=== PATIENT | female | born 1945 ===

== ENCOUNTER 2017-09-18 18:59 | Emergency (ER) | payer MEDICARE, BC ==
[2017-06-01 09:41] VITALS: Ht 162.6 cm; Wt 77.6 kg
[~2017-09-18] VITALS: Ht 162.6 cm; Wt 77.6 kg
[~2017-09-18 18:59] MED LIST: ASCO-182 PO; ASPI-1471 PO; ASPI-757 PO; ATOR40TA24 PO; CALC1TAB32 PO; CALC600T63 PO; CHOL200059 PO; CYCL10TA29 PO; ESCI20TA8 PO; HYDR-385 PO; HYDR-4225 PO; IRO150 PO; LEVO50TA86 PO; MELO-205 PO; METH4TAB67 PO; OMEP40CA48 PO; OXYC-865 PO; ZOLP-350 PO
--- NOTE | 2017-09-18 19:01 | ER Report ---
History and Physical Time Seen By MD: 19:00 HPI/ROS CHIEF COMPLAINT: Right shoulder pain, insomnia HISTORY OF PRESENT ILLNESS: 72-year-old female with a history of advanced arthritis presents with severe right shoulder pain with causing her not to be able to sleep the last 2 days. She is status post total knee replacement on the left by Dr. Rodriguez in late May of last year. She states she seen Dr. Rodriguez. They were considering shoulder replacement surgery. Patient is supposed to show up tomorrow at 3 PM for preop for anticipated surgery on Tuesday09/20/17. She's been taking some leftover hydrocodone left over from dental surgery in an attempt to get some pain relief. She notes no fever or chills. On arrival. She's grossly pale and diaphoretic. During her most recent admission. She was noted to have iron deficiency anemia. There was plans suggested that she needed endoscopy and colonoscopy to rule out occult sources of blood loss. Patient recovered successfully from her total knee replacement. She denies recent illness, fever, chills, sore throat, cough or dysuria. She denies chest pain or shortness of breath. She was placed on Bactrim DS twice a day for 3 days by her primary care doctor in [facility] For urinary tract infection. She is taking the last day of this regime. REVIEW OF SYSTEMS: Respiratory: No cough, no dyspnea. Cardiovascular: No chest pain, no palpitations. Gastrointestinal: No vomiting, no abdominal pain. Musculoskeletal: As above Allergies: Coded Allergies: No Known Drug Allergies (Unverified , 09/18/17) Home Meds Active Scripts Hydrocodone Bit/Acetaminophen (NORCO 5-325 TABLET) 1 Each Tablet, 1 EACH PO Q4H Y for PAIN, #15 TAB Prov:BRANT BUTLER DO 09/18/17 Ondansetron (ZOFRAN ODT) 4 Mg Tab.rapdis, 4 MG PO every 6 hours Y for NAUSEA/ VOMITING, #10 TAB TAKE 1 TABLET BY MOUTH EVERY 12 HOURS Prov:BRANT BUTLER DO 09/18/17 Aspirin (ASPIRIN) 325 Mg Tablet, 325 MG PO QHS for 30 Days, Take for 30 days for blood clot prevention, then resume aspirin 81mg a day. Prov:JENNIFER WARD MD 06/02/17 Reported Medications Sulfamethoxazole/Trimet 800-160 Mg Tab (BACTRIM DS TABLET) 1 Each Tablet, 1 TAB PO Q12H, TAB 09/18/17 Meloxicam (MELOXICAM) 7.5 Mg Tablet, 7.5 MG PO QDAY 09/12/17 Calcium Carb & Cit/Vitamin D3 (CALCIUM + D3 ER TABLET) 1 Each Tablet.er, 1 EACH PO QDAY 09/12/17 Calcium Carbonate (CALCIUM) 600 Mg Tablet, 600 MG PO 09/12/17 Hydrocodone Bit/Acetaminophen (HYDROCODON-ACETAMINOPHEN 5-325) 1 Each Tablet, 1- 2 EACH PO Q4H for PAIN, TAB 06/02/17 Zolpidem Tartrate (AMBIEN) 10 Mg Tablet, 1 TAB PO QHS Y for INSOMNIA, TAB 05/18/17 Levothyroxine Sodium (LEVOTHYROXINE SODIUM) 50 Mcg Tablet, 50 MCG PO QDAY, TAB 05/18/17 Escitalopram Oxalate (ESCITALOPRAM OXALATE) 20 Mg Tablet, 20 MG PO QDAY 05/18/17 Hydroxyzine Hcl (HYDROXYZINE HCL) 25 Mg Tablet, 25 MG PO QDAY Y for ANXIETY, 05/18/17 Ascorbic Acid (VITAMIN C) 500 Mg Tablet, 50 MG PO QDAY, TAB 05/18/17 Cholecalciferol (Vitamin D3) (Vitamin D) 2,000 Unit Tablet, 1000 PO QDAY 05/18/17 Omeprazole (OMEPRAZOLE) 40 Mg Capsule.dr, 40 MG PO QDAY, CAP 05/18/17 Discontinued Reported Medications Atorvastatin Calcium (LIPITOR) 40 Mg Tablet, 1 TAB PO QDAY, TAB 05/18/17 Oxycodone Hcl/Acetaminophen (PERCOCET 5-325 MG TABLET) 1 Each Tablet, 1-2 EACH PO Q4-6H Y for PAIN, TAB 06/02/17 Discontinued Scripts Polysaccharide Iron Complex (POLY-IRON) 150 Mg Cap, 150 MG PO BIDBS, #60 CAP Prov:JENNIFER WARD MD 06/02/17 Reviewed Nurses Notes: Yes Old Medical Records Reviewed: Yes Hx Smoking: No Smoking Status: Never Smoker Hx Alcohol Use: Yes Constitutional Vital Sign - Last 24 Hours 09/18/17 09/18/17 09/18/17 09/18/17 19:04 19:10 19:15 19:30 Temp 98.2 Pulse 82 85 84 Resp 14 B/P (MAP) 138/76 (96) 138/76 Pulse Ox 100 100 96 O2 Delivery Room Air 09/18/17 09/18/17 09/18/17 09/18/17 19:45 20:00 20:15 20:30 Pulse 81 80 87 81 B/P (MAP) 136/72 (93) Pulse Ox 93 91 96 92 09/18/17 09/18/17 09/18/17 09/18/17 20:45 21:15 21:38 21:41 Pulse 80 87 78 Resp 7 14 B/P (MAP) 132/68 (89) 138/70 (92) 131/69 (89) Pulse Ox 89 91 91 O2 Delivery Room Air O2 Flow Rate 2.0 09/18/17 09/18/17 09/18/17 09/18/17 21:45 22:00 22:15 22:45 Pulse 77 77 81 87 Resp 8 7 10 14 B/P (MAP) 108/62 (77) 113/87 (96) Pulse Ox 99 98 100 93 O2 Delivery Room Air Physical Exam Vital signs stable, afebrile, pulse ox normal General Appearance: The patient is alert, has no immediate need for airway protection and no current signs of toxicity., Grossly pale appearing, slightly diaphoretic. HEENT: Pupils equal and round no injection. Oropharynx without redness or exudate Respiratory: Chest is non tender, lungs are clear to auscultation. Cardiac: regular rate and rhythm, no murmur Gastrointestinal: Abdomen is soft and non tender, no masses, bowel sounds normal. Musculoskeletal: Neck: Neck is supple and non tender. No lymphadenopathy, no JVD Extremities have full range of motion and are non tender. No edema, no calf tenderness Skin: No rashes or lesions. DIFFERENTIAL DIAGNOSIS: After history and physical exam differential diagnosis was considered for weakness including but not limited to electrolyte abnormality , depression, anxiety, CVA, spinal cord abnormality, and infectious causes. Medical Decision Making Data Points Result Diagram: 09/18/17191809/18/171918 Laboratory Hematology Test 09/18/17 19:19 09/18/17 21:25 Red Blood Count 4.58 M/uL (4.17-5.56) Mean Corpuscular Volume 70.2 fL (80.0-96.0) Mean Corpuscular Hemoglobin 22.2 pg (26.0-33.0) Mean Corpuscular Hemoglobin Concent 31.6 g/dL (32.0-36.0) Red Cell Distribution Width 19.6 % (11.5-14.5) Mean Platelet Volume 6.6 fL (7.2-11.1) Neutrophils (%) (Auto) 61.2 % (39.4-72.5) Lymphocytes (%) (Auto) 21.2 % (17.6-49.6) Monocytes (%) (Auto) 9.3 % (4.1-12.4) Eosinophils (%) (Auto) 7.5 % (0.4-6.7) Basophils (%) (Auto) 0.8 % (0.3-1.4) Nucleated RBC Relative Count (auto) 0.0 /100WBC Neutrophils # (Auto) 3.1 K/uL (2.0-7.4) Lymphocytes # (Auto) 1.1 K/uL (1.3-3.6) Monocytes # (Auto) 0.5 K/uL (0.3-1.0) Eosinophils # (Auto) 0.4 K/uL (0.0-0.5) Basophils # (Auto) 0.0 K/uL (0.0-0.1) Nucleated RBC Absolute Count (auto) 0.00 K/uL Prothrombin Time 12.7 seconds (12.0-14.4) Prothromb Time International Ratio 0.95 Activated Partial Thromboplast Time 27 seconds (23-35) D-Dimer Quantitative (PE/DVT) 1.98 ug/ml (0-0.50) Sodium Level 138 mmol/L (137-145) Potassium Level 3.7 mmol/L (3.5-5.0) Chloride Level 102 mmol/L (98-107) Carbon Dioxide Level 20 mmol/L (22-31) Blood Urea Nitrogen 19 mg/dl (7-18) Creatinine 1.30 mg/dl (0.52-1.04) Glomerular Filtration Rate Calc 40.5 Random Glucose 134 mg/dl (75-110) Calcium Level 9.2 mg/dl (8.4-10.2) Total Bilirubin 0.2 mg/dl (0.2-1.3) Aspartate Amino Transf (AST/SGOT) 24 U/L (0-35) Alanine Aminotransferase (ALT/SGPT) 38 U/L (0-56) Alkaline Phosphatase 155 U/L (0-126) Troponin I < 0.012 ng/ml B-Type Natriuretic Peptide 12 pg/ml (0-100) Total Protein 7.4 gm/dl (6.3-8.2) Albumin 4.2 g/dl (3.5-5.0) Urine Color Yellow Urine Clarity Clear Urine pH 7.0 pH (4.8-9.5) Urine Specific [place] 1.018 Urine Protein Negative mg/dL (NEGATIVE) Urine Glucose (UA) Negative mg/dL (NEGATIVE) Urine Ketones Trace mg/dL (NEGATIVE) Urine Blood Negative (NEGATIVE) Urine Nitrite Negative (NEGATIVE) Urine Bilirubin Negative (NEGATIVE) Urine Urobilinogen Negative mg/dL (0.2-1.9) Urine Leukocyte Esterase Negative (NEGATIVE) Urine RBC <1 /HPF (0-2/HPF) Urine WBC <1 /HPF (0-5/HPF) Urine Squamous Epithelial Cells Many /LPF (</=FEW) Urine Bacteria Negative /HPF (NONE-FEW) Urine Mucus None /HPF (NONE-FEW) Chemistry Test 09/18/17 19:19 09/18/17 21:25 White Blood Count 5.1 k/uL (4.5-11.0) Red Blood Count 4.58 M/uL (4.17-5.56) Hemoglobin 10.2 g/dL (12.0-16.0) Hematocrit 32.2 % (34.0-47.0) Mean Corpuscular Volume 70.2 fL (80.0-96.0) Mean Corpuscular Hemoglobin 22.2 pg (26.0-33.0) Mean Corpuscular Hemoglobin Concent 31.6 g/dL (32.0-36.0) Red Cell Distribution Width 19.6 % (11.5-14.5) Platelet Count 395 K/uL (150-450) Mean Platelet Volume 6.6 fL (7.2-11.1) Neutrophils (%) (Auto) 61.2 % (39.4-72.5) Lymphocytes (%) (Auto) 21.2 % (17.6-49.6) Monocytes (%) (Auto) 9.3 % (4.1-12.4) Eosinophils (%) (Auto) 7.5 % (0.4-6.7) Basophils (%) (Auto) 0.8 % (0.3-1.4) Nucleated RBC Relative Count (auto) 0.0 /100WBC Neutrophils # (Auto) 3.1 K/uL (2.0-7.4) Lymphocytes # (Auto) 1.1 K/uL (1.3-3.6) Monocytes # (Auto) 0.5 K/uL (0.3-1.0) Eosinophils # (Auto) 0.4 K/uL (0.0-0.5) Basophils # (Auto) 0.0 K/uL (0.0-0.1) Nucleated RBC Absolute Count (auto) 0.00 K/uL Prothrombin Time 12.7 seconds (12.0-14.4) Prothromb Time International Ratio 0.95 Activated Partial Thromboplast Time 27 seconds (23-35) D-Dimer Quantitative (PE/DVT) 1.98 ug/ml (0-0.50) Glomerular Filtration Rate Calc 40.5 Calcium Level 9.2 mg/dl (8.4-10.2) Total Bilirubin 0.2 mg/dl (0.2-1.3) Aspartate Amino Transf (AST/SGOT) 24 U/L (0-35) Alanine Aminotransferase (ALT/SGPT) 38 U/L (0-56) Alkaline Phosphatase 155 U/L (0-126) Troponin I < 0.012 ng/ml B-Type Natriuretic Peptide 12 pg/ml (0-100) Total Protein 7.4 gm/dl (6.3-8.2) Albumin 4.2 g/dl (3.5-5.0) Urine Color Yellow Urine Clarity Clear Urine pH 7.0 pH (4.8-9.5) Urine Specific [place] 1.018 Urine Protein Negative mg/dL (NEGATIVE) Urine Glucose (UA) Negative mg/dL (NEGATIVE) Urine Ketones Trace mg/dL (NEGATIVE) Urine Blood Negative (NEGATIVE) Urine Nitrite Negative (NEGATIVE) Urine Bilirubin Negative (NEGATIVE) Urine Urobilinogen Negative mg/dL (0.2-1.9) Urine Leukocyte Esterase Negative (NEGATIVE) Urine RBC <1 /HPF (0-2/HPF) Urine WBC <1 /HPF (0-5/HPF) Urine Squamous Epithelial Cells Many /LPF (</=FEW) Urine Bacteria Negative /HPF (NONE-FEW) Urine Mucus None /HPF (NONE-FEW) Coagulation Test 09/18/17 19:19 Prothrombin Time 12.7 seconds Prothromb Time International Ratio 0.95 Activated Partial Thromboplast Time 27 seconds D-Dimer Quantitative (PE/DVT) 1.98 ug/ml Urinalysis Test 09/18/17 21:25 Urine Color Yellow Urine Clarity Clear Urine pH 7.0 pH (4.8-9.5) Urine Specific [place] 1.018 Urine Protein Negative mg/dL (NEGATIVE) Urine Glucose (UA) Negative mg/dL (NEGATIVE) Urine Ketones Trace mg/dL (NEGATIVE) Urine Blood Negative (NEGATIVE) Urine Nitrite Negative (NEGATIVE) Urine Bilirubin Negative (NEGATIVE) Urine Urobilinogen Negative mg/dL (0.2-1.9) Urine Leukocyte Esterase Negative (NEGATIVE) Urine RBC <1 /HPF (0-2/HPF) Urine WBC <1 /HPF (0-5/HPF) Urine Squamous Epithelial Cells Many /LPF (</=FEW) Urine Bacteria Negative /HPF (NONE-FEW) Urine Mucus None /HPF (NONE-FEW) EKG/Imaging EKG Interpretation 12 lead EK Rhythm: normal sinus rhythm with frequent PACs [place]: normal QRS: normal, QT prolongation ST segments: Diffuse T-wave flattening, comparison to previous EKG dated Imaging Results: CT scan of the CTA pulmonary angiogram and abdomen and pelvis with contrast was obtained. The results of the study are: CT ANGIOGRAM OF THE CHEST WITH INTRAVENOUS CONTRAST, PE PROTOCOL. CT OF THE ABDOMEN AND PELVIS. DATE OF EXAM: 09/18/2017 20:21 COMPARISON: None. INDICATION: R shoulder pn r/o PE, Fe deficient anemia r/o abd path. TECHNIQUE: Contrast enhanced chest CT performed during the injection of 75 ml of Isovue-370. Three-dimensional (MIP) reconstructions were performed. Imaging was performed through the abdomen and pelvis subsequently. FINDINGS: There is no pulmonary arterial filling defect. Thyroid: Not diagnostically imaged. Thoracic inlet: Small thoracic inlet lymph nodes. Heart and great vessels: Heart size is normal. There is prominent aortic annular atherosclerosis. Mediastinum and marija: A few mediastinal and hilar lymph nodes are enlarged. Calcifications at the left hilum are likely within lymph nodes. Lungs and pleura: No effusion, consolidation, or pneumothorax. Breast and axilla: Incompletely imaged breast tissue. Bones and soft tissues: No acute osseous abnormality. ABDOMEN AND PELVIS: There is a large hiatal hernia. The portal veins well-opacified. No ascites. Smooth liver surface. The gallbladder is mildly distended, and there is a large peripherally calcified gallstone. No definite signs of cholecystitis. A few punctate splenic calcifications may reflect an old granulomatous process. Normal adrenals. Symmetric renal enhancement. No hydronephrosis or collecting system obstruction. Normal-appearing bladder. Normal-appearing pancreas. Peripherally calcified round focus at the splenic hilum could be a thrombosed splenic artery aneurysm. No bowel obstruction. No free fluid or free air. There are multiple old right-sided rib fractures. These are nondisplaced. Severe disc and endplate degenerative findings at L5-S1 and L2-3 and L1-2. Moderate multilevel facet arthropathy. Disc and endplate degenerative findings are also noted in the thoracic spine. IMPRESSION: 1. Negative for pulmonary arterial embolus. 2. No clear evidence of acute intra-abdominal abnormality. 3. Cholelithiasis without findings of cholecystitis. 4. Large hiatal hernia with much of the stomach above the diaphragm 5. Mediastinal and hilar adenopathy is nonspecific. 6. Additional chronic findings as above. One of the following dose optimization techniques was utilized in the performance of this exam: Automated exposure control; adjustment of the mA and/ or kV according to the patient's size; or use of an iterative reconstruction technique. Specific details can be referenced in the facility's radiology CT exam operational policy. The study was read by the radiologist. I viewed the images myself on the PACS system. ED Course/Re-evaluation Clinical Indication for ER IV: Hydration, IV Access ED Course To an examination room. H&P was done. The differential diagnoses was considered. On clinical examination. Patient has significant right shoulder pain. She slightly pale. Her vital signs are stable. She is scheduled for total shoulder replacement on the right on Tuesday in 2 days. She's been taking some leftover hydrocodone for pain relief. Patient's treated with IV fluid hydration, diagnostic evaluation shows elevated d-dimer. Remainder of her diagnostic studies are unremarkable. She has iron deficiency anemia. Her H &H seems stable at baseline. Patient's d-dimer was elevated. A CT angiogram of the chest was ordered. Since patient was receiving contrast. A abdomen and pelvis were added on for her chronic iron deficiency anemia to rule out malignancy. CT was negative of the chest for pulmonary embolism. The abdomen and pelvis was unremarkable. Patient's discharged home on Zofran and hydrocodone. She is advised to follow-up as planned for her preop. Decision to Disposition Date: Sep 18, 2017 Decision to Disposition Time: 22:09 Depart Departure Latest Vital Signs Vital Signs Date Time Temp Pulse Resp B/P (MAP) Pulse Ox O2 Delivery O2 Flow Rate FiO2 09/18/17 22:45 87 14 113/87 (96) 93 Room Air 09/18/17 21:41 2.0 09/18/17 19:10 98.2 Impression: Primary Impression: Right shoulder pain Additional Impressions: Degenerative arthritis Nausea Condition: Improved Disposition: HOME OR SELF-CARE New Scripts Hydrocodone Bit/Acetaminophen (NORCO 5-325 TABLET) 1 Each Tablet 1 EACH PO Q4H Y for PAIN, #15 TAB Prov: BRANT BUTLER DO 09/18/17 Ondansetron (ZOFRAN ODT) 4 Mg Tab.rapdis 4 MG PO every 6 hours Y for NAUSEA/VOMITING, #10 TAB TAKE 1 TABLET BY MOUTH EVERY 12 HOURS Prov: BRANT BUTLER DO 09/18/17 Patient Instructions: Shoulder Pain (ED) Additional Instructions: Continue all of your regular medicines as prescribed Contact Dr. Rodriguez tomorrow and let him know about your shoulder joint swelling and pain Return to the ER for any worsening Problem Qualifiers Primary Impression: Right shoulder pain Chronicity: acute Qualified Codes: M25.511 - Pain in right shoulder Additional Impressions: Degenerative arthritis Osteoarthritis location: unspecified site Osteoarthritis type: unspecified Qualified Codes: M19.90 - Unspecified osteoarthritis, unspecified site BRANT BUTLER DO Sep 18, 2017 19:01
[2017-09-18] MEDS ORDERED: SULF-198 PO (19:10)
[2017-09-18] MEDS ORDERED: NS(*) 0.9% 1000 ML BAG 1,000 ML IV ONE ×2 (19:18→20:05)
[2017-09-18] MEDS ORDERED: ONDANSETRON 4 MG/2 ML VIAL IVP ONE ×2 (19:20→21:15)
[2017-09-18] MEDS ORDERED: fentaNYL CITR 100 MCG/2 ML AMP IVP ONE ×2 (19:20→21:15)
[2017-09-18 19:28] LABS: PLATELET COUNT, AUTOMATED 395 K/uL (150-450)
[2017-09-18 19:39] LABS: INR 0.95
[2017-09-18] MEDS ORDERED: NS 0.9% 150 ML BAG 150 ML ONE (20:21)
[2017-09-18] MEDS ORDERED: IOPAMIDOL 76% 75 ML INFUS BTL 75 ML ONE (20:21)
--- NOTE | 2017-09-18 20:26 | EKG ---
FACILITY: [facility] [place] PATIENT NAME: DANIELE NOYOLA : [id number] MR: [id number] V: [id number] EXAM DATE: ORDERING PHYSICIAN: BRANT BUTLER TECHNOLOGIST: Jeff Quiles Reason : Blood Pressure : / mmHG Vent. Rate : 083 BPM Atrial Rate : 083 BPM P-R Int : 146 ms QRS Dur : 084 ms QT Int : 418 ms P-R-T Axes : 062 006 042 degrees QTc Int : 491 ms Sinus arrhythmia with PAC Diffuse, non-specific, T flattening Prolonged QT Abnormal ECG Confirmed by JENNIFER WARD ([id number]) on 09/19/2017 6:30:25 AM Referred By: Confirmed By:JENNIFER WARD
--- NOTE | 2017-09-18 22:06 | RADIOLOGY IMAGING REPORT ---
FACILITY: [facility] PATIENT NAME: Kell Holloway : 1945 MR: [id number] V: [id number] EXAM DATE: ORDERING PHYSICIAN: BRANT BUTLER TECHNOLOGIST: Location: [facility] [place] Patient: Kell Holloway : 1945 Visit/Account:[id number] Date of Sevice: 09/18/2017 CT ANGIOGRAM OF THE CHEST WITH INTRAVENOUS CONTRAST, PE PROTOCOL. CT OF THE ABDOMEN AND PELVIS. DATE OF EXAM: 09/18/2017 20:21 COMPARISON: None. INDICATION: R shoulder pn r/o PE, Fe deficient anemia r/o abd path. TECHNIQUE: Contrast enhanced chest CT performed during the injection of 75 ml of Isovue-370. Three-d imensional (MIP) reconstructions were performed. Imaging was performed through the abdomen and pelvis subsequently. FINDINGS: There is no pulmonary arterial filling defect. Thyroid: Not diagnostically imaged. Thoracic inlet: Small thoracic inlet lymph nodes. Heart and great vessels: Heart size is normal. There is prominent aortic annular atherosclerosis. Mediastinum and marija: A few mediastinal and hilar lymph nodes are enlarged. Calcifications at the le ft hilum are likely within lymph nodes. Lungs and pleura: No effusion, consolidation, or pneumothorax. Breast and axilla: Incompletely imaged breast tissue. Bones and soft tissues: No acute osseous abnormality. ABDOMEN AND PELVIS: There is a large hiatal hernia. The portal veins well-opacified. No ascites. Smooth liver surface. The gallbladder is mildly distended, and there is a large peripherally calcified gallstone. No defini te signs of cholecystitis. A few punctate splenic calcifications may reflect an old granulomatous process. Normal adrenals. Symmetric renal enhancement. No hydronephrosis or collecting system obstruction. Normal-appearing mariama dder. Normal-appearing pancreas. Peripherally calcified round focus at the splenic hilum could be a thrombo sed splenic artery aneurysm. No bowel obstruction. No free fluid or free air. There are multiple old right-sided rib fractures. These are nondisplaced. Severe disc and endplate de generative findings at L5-S1 and L2-3 and L1-2. Moderate multilevel facet arthropathy. Disc and endpl ate degenerative findings are also noted in the thoracic spine. IMPRESSION: 1. Negative for pulmonary arterial embolus. 2. No clear evidence of acute intra-abdominal abnormality. 3. Cholelithiasis without findings of cholecystitis. 4. Large hiatal hernia with much of the stomach above the diaphragm 5. Mediastinal and hilar adenopathy is nonspecific. 6. Additional chronic findings as above. One of the following dose optimization techniques was utilized in the performance of this exam: Autom ated exposure control; adjustment of the mA and/or kV according to the patient's size; or use of an i terative reconstruction technique. Specific details can be referenced in the facility's radiology C T exam operational policy. Report Dictated By: Eleanor Torres MD at 09/18/2017 9:39 PM Report E-Signed By: Eleanor Torres MD at 09/18/2017 10:01 PM WSN:[id number]
[2017-09-18] MEDS ORDERED: ONDA4TAB PO (22:16)
[2017-09-18] MEDS ORDERED: HYDR-4309 PO (22:16)
[2017-09-18] MEDS ORDERED: ONDANSETRON 4 MG ODT TH SL ONE (22:20)
[2017-09-18] MEDS ORDERED: ACET/HYDROC 5/325MG TH ER ONLY 2 TAB/BOTTLE PO ONE (22:20)
[2017-09-18] MEDS ORDERED: PROMETHAZINE 25 MG/ML 1 ML AMP IVP ONE (22:30)
[2017-09-18 22:45] VITALS: BP 113/87
== END 2017-09-18 22:55 | disposition home or self-care (01) ==
LOC: ER 19:05
DX: M19.90 Unspecified osteoarthritis, unspecified site (principal); M25.511 Pain in right shoulder; R11.0 Nausea; R61 Generalized hyperhidrosis; Z79.82 Long term (current) use of aspirin; D50.9 Iron deficiency anemia, unspecified; I49.9 Cardiac arrhythmia, unspecified
CPT/HCPCS: 71260; 74177; 81001; 83880; 84484; 85025; 85379; 85610; 85730; 93005; 96361; 96374; 96375; 96376; 99284; J2405; J2550; J3010; J7030; Q0162; Q9967; 82040; 82247; 82310; 82374; 82435; 82565; 82947; 84075; 84132; 84155; 84295; 84450; 84460; 84520; S0119